=== PATIENT | male | born 1960 | race Caucasian/White ===

== ENCOUNTER 2016-08-08 10:58 | Inpatient (IN) | payer MEDICAID, OTHER ==
[2016-08-08] VITALS (33 sets, daily range): BP systolic 99–140; BP diastolic 69–95; PULSE 82–110; RESP 8–26; TEMP 98.6; Ht 180.3 cm; Wt 62.5 kg
[~2016-08-08] VITALS: Ht 180.3 cm; Wt 62.5 kg
[2016-08-08] MEDS ORDERED: ASPIRIN 325 MG TAB PO STA (11:27)
--- NOTE | 2016-08-08 11:31 | ERA ---
ER Documentation Chief Complaint Date/Time DATE: 08/08/16 TIME: 11:26 Chief Complaint HPI 56-year-old male with no significant previous medical history other than nicotine abuse ambulatory to the ED complaining of acute onset of unprovoked, severe, sharp and pressure-like epigastric pain which radiates up to his mid substernal area. Denies shortness of breath, nausea, vomiting or diaphoresis. No relieving or exacerbating factors. Denies headache or neck pain. No visual changes, focal weakness or numbness. Denies abdominal pain or low back pain. No leg pain or swelling. No URI symptoms or cough. No fevers or chills. ROS All systems reviewed and are negative except as per history of present illness. Medications Home Meds No Active Prescriptions or Reported Meds Allergies Allergies: Coded Allergies: No Known Allergy (Unverified , 08/08/16) PMhx/Soc Reviewed in chart. As per HPI. History of Surgery: Yes Anesthesia Reaction: No Hx Neurological Disorder: No Hx Respiratory Disorders: No Hx Cardiac Disorders: No Hx Psychiatric Problems: No Hx Miscellaneous Medical Probl: No Hx Alcohol Use: Yes (2-3 drinks per day for many years) Hx Tobacco Use: Yes (1 pack per day for over 25 years) FmHx Mother: Cardiac disease and heart surgery. No family history of stroke or cancer Physical Exam Vitals Vital Signs Date Time Temp Pulse Resp B/P Pulse Ox O2 Delivery O2 Flow Rate FiO2 08/08/16 11:58 98.6 114 18 124/76 99 Room Air 08/08/16 11:37 Nasal Cannula 2 08/08/16 11:30 98.6 80 20 111/71 99 Physical Exam Const: Alert, severe distress Head: Atraumatic Eyes: Normal Conjunctiva ENT: Normal External Ears, Nose and Mouth. Neck: Full range of motion. No JVD. Resp: Clear to auscultation bilaterally Cardio: Regular rate and rhythm, no murmurs. No chest wall tenderness Abd: Soft, non tender, non distended. Normal bowel sounds Skin: No petechiae or rashes Back: No midline or flank tenderness Ext: No cyanosis, or edema. No calf swelling or tenderness Neur: Awake and alert. No focal deficit observed Psych: Appears anxious but not depressed. Result Diagram: 08/08/16 1205 08/08/16 1205 Results 24 hrs Laboratory Tests Test 08/08/16 12:05 White Blood Count 19.610^3/ul Red Blood Count 4.5410^6/ul Hemoglobin 14.5g/dl Hematocrit 42.4% Mean Corpuscular Volume 93.4fl Mean Corpuscular Hemoglobin 31.9pg Mean Corpuscular Hemoglobin Concent 34.2g/dl Red Cell Distribution Width 14.6% Platelet Count 52260^3/UL Mean Platelet Volume 10.2fl Neutrophils % 79.8% Lymphocytes % 14.7% Monocytes % 4.2% Eosinophils % 0.4% Basophils % 0.4% Nucleated Red Blood Cells % 0.0/100WBC Neutrophils # 15.710^3/ul Lymphocytes # 2.910^3/ul Monocytes # 0.810^3/ul Eosinophils # 0.110^3/ul Basophils # 0.110^3/ul Nucleated Red Blood Cells # 0.010^3/ul Prothrombin Time 12.2Sec Prothrombin Time Ratio 1.0 INR International Normalized Ratio 0.91 Activated Partial Thromboplast Time 24.1Sec Sodium Level 135mmol/L Potassium Level 4.3mmol/L Chloride Level 104mmol/L Carbon Dioxide Level 24mmol/L Anion Gap 11 Blood Urea Nitrogen 10mg/dl Creatinine 1.03mg/dl Glucose Level 211mg/dl Calcium Level 9.4mg/dl Troponin I 0.300ng/ml Current Medications Medications (Trade) Dose Ordered Sig/Desi Route PRN Reason Start Time Stop Time Status Last Admin Dose Admin Aspirin (Aspirin) 325 mg ONCE STAT PO 08/08/16 11:27 08/08/16 11:28 DC 08/08/16 11:33 Ticagrelor (Brilinta) 180 mg ONCE ONCE PO 08/08/16 12:00 08/08/16 12:01 DC 08/08/16 11:44 Miscellaneous Information (* Miscellaneous Pharmacy Order) DC previous hepa... ONCE ONCE XX 08/08/16 12:00 08/08/16 12:01 DC Heparin Sodium (Porcine) (Heparin (1000 Units/ml)) 4,000 unit ONCE ONCE IV 08/08/16 12:00 08/08/16 12:01 DC 08/08/16 11:39 Heparin Sodium (Porcine) 4000 unit 4,000 unit PER PROTOCOL PRN IV aPTT<47 08/08/16 12:00 Heparin Sodium (Porcine) (Heparin 43131 Units/250 ml) 250 ml @ 0 mls/hr PER PROTOCOL IV 08/08/16 12:00 08/08/16 11:44 Nitroglycerin 1 tab 1 tab Q5M UP TO 3 DOSES PRN SL CHEST PAIN 08/08/16 12:00 08/08/16 11:50 Nitroglycerin/ Dextrose 250 ml @ 6 mls/hr ONCE STAT IV 08/08/16 11:44 08/10/16 05:23 08/08/16 11:56 Heparin Sodium/ Sodium Chloride (Heparin 1000 Units/NS (A-Line)) 1,500 ml @ ud STK-MED ONCE .ROUTE 08/08/16 11:49 08/08/16 11:50 DC Iodixanol (Visipaque Locm) 100 ml STK-MED ONCE .ROUTE 08/08/16 11:49 08/08/16 11:50 DC Lidocaine (Xylocaine 1% (Mdv) 20 ml) 20 ml STK-MED ONCE .ROUTE 08/08/16 11:49 08/08/16 11:50 DC Midazolam HCl (Versed) 2 mg STK-MED ONCE .ROUTE 08/08/16 11:59 08/08/16 12:00 DC Fentanyl (Sublimaze) 100 mcg STK-MED ONCE .ROUTE 08/08/16 11:59 08/08/16 12:00 DC Iohexol (Omnipaque 350mg/ ml) 50 ml STK-MED ONCE .ROUTE 08/08/16 12:33 08/08/16 12:34 DC Iodixanol (Visipaque Locm) 100 ml STK-MED ONCE .ROUTE 08/08/16 12:33 08/08/16 12:34 DC Iodixanol (Visipaque Locm) 100 ml STK-MED ONCE .ROUTE 08/08/16 12:33 08/08/16 12:34 DC Heparin Sodium (Porcine) (Heparin (1000 Units/ml)) 10,000 unit STK-MED ONCE .ROUTE 08/08/16 12:33 08/08/16 12:34 DC Lidocaine/ Epinephrine (Xylocaine 1%/ Epi) 30 ml STK-MED ONCE .ROUTE 08/08/16 12:53 08/08/16 12:54 DC Miscellaneous Information (* Miscellaneous Pharmacy Order) Hold all Metformin ... ONCE XX 08/08/16 13:30 08/10/16 13:29 Aspirin (Halfprin) 81 mg DAILY PO 08/09/16 09:00 Ticagrelor (Brilinta) 90 mg BID PO 08/08/16 21:00 Atorvastatin Calcium 80 mg 80 mg DAILY@21 PO 08/08/16 21:00 Sodium Chloride (NS) 1,000 ml @ 75 mls/hr [id number] IV 08/08/16 13:08 08/08/16 18:07 Potassium Chloride (Potassium Chloride Pwd/Soln) 20 meq PER PROTOCOL PRN PO POTASSIUM REPLACEMENT PROTOCOL 08/08/16 13:30 Potassium Chloride (Potassium Chloride Pwd/Soln) 30 meq PER PROTOCOL PRN PO POTASSIUM REPLACEMENT PROTOCOL 08/08/16 13:30 Potassium Chloride (Potassium Chloride Pwd/Soln) 40 meq PER PROTOCOL PRN PO POTASSIUM REPLACEMENT PROTOCOL 08/08/16 13:30 RHYTHM STRIP INTERPRETATION: Time: 11:35. Sinus rhythm. Ventricular rate 82. No ectopy. Indication: Chest pain/STEMI. EKG: TIME: 11:20. Sinus rhythm. Ventricular rate 68. Normal VA interval. Left axis deviation with right bundle branch block. ST segment elevations in V1 through V5 with reciprocal depressions in 2 3 and aVF. No ectopy. EP Interpretation: Acute STEMI. Abnormal EKG. IMAGING: [ ] Procedures/MDM DOCUMENTS REVIEWED: ED nurse, no prior records MEDICAL DECISION MAKIN-year-old male with no significant previous medical history other than nicotine abuse ambulatory to the ED complaining of acute onset of unprovoked, severe, sharp and pressure-like epigastric pain which radiates up to his mid substernal area. EKG reveals ST segment elevations consistent with an acute anterior septal cartilage infarction. Code STEMI immediately initiated AND case discussed with Dr. Strickland of cardiology who will take the patient emergently to the cardiac director geophysical laboratory. Aspirin, Brilinta given. Intravenous heparin and nitroglycerin initiated. Doubt pulmonary embolism or aortic dissection. At 11:55 patient developed episodes of supraventricular tachycardia but blood pressure remained stable. Pacer/ defibrillator pads are in place. Patient was transported to the Cardiac [facility] at 12:03. Admit to ICU after PCI. Counseled patient and family regarding diagnosis, diagnostic results and plan for PCI and admission. CALLS/CONSULTS: Time 11:26, Code Stemi and Dr. Marco A loredo. Recommends aspirin , heparin, Brilinta and Wire [facility] activation. CALLS/CONSULTS: Time 11:50, Dr Calhoun PATIENT CARE TRANSITIONED: Time: 11:50, Dr. Calhoun. Critical Care Time: 35 minutes Treatments/Evaluations: Close monitoring and treatment of unstable vital signs, cardiorespiratory, and neurologic status, while maintaining tight balance of fluid, respiratory, and cardiac interventions. This time includes discussing the case with the patient and the patient's family. This time does not include all procedures stated elsewhere in this record. This time also includes reviewing old records, labs and radiological studies. This time includes examining and re-examining the patient. Additionally, this time also includes arranging care with admitting and consulting physicians. Departure Diagnosis: Primary Impression: Acute ST elevation myocardial infarction Qualified Code: I21.09 - Acute ST elevation myocardial infarction (STEMI) involving other coronary artery of anterior wall Condition: Critical ALEX DIETRICH MD Aug 08, 2016 11:31
[2016-08-08] MEDS ORDERED: NITROGLYCERIN 50 MG/D5W (PMX) 250 ML IV STA (11:44)
--- NOTE | 2016-08-08 11:44 | RADRPT ---
PROCEDURE: XR Chest. CLINICAL INDICATION: Chest pain. TECHNIQUE: PA and Lateral views of the chest were obtained. COMPARISON: No. FINDINGS: The soft tissues are normal. The bony elements are normal. Electrodes are draped across the chest. There is an accessory azygos fissure. There are defibrilla tor pads over the upper right chest wall and lower left chest wall. The heart, cardiomediastinal si lhouette and hilar structures are normal. The pulmonary vasculature is normal. There is a left-sided aorta. The lungs are clear. The diaphragms are flattened. The costophrenic angles are clear. IMPRESSION: 1. Pulmonary hyperinflation with no evidence of active cardiopulmonary disease. RPTAT:AAJJ Physician Sanna Date Time Electronically viewed and signed by Physician Sanna on 08/08/2016 11:44 STEPHEN/
[2016-08-08] MEDS ORDERED: IODIXANOL LOCM 100 ML BTL ONE ×3 (11:49→12:33)
[2016-08-08] MEDS ORDERED: LIDOCAINE 1% (MDV) 20 ML INJ ONE (11:49)
--- NOTE | 2016-08-08 11:58 | CONS ---
Date/Time of Note Date/Time of Note DATE: 08/08/16 TIME: 11:55 Assessment/Plan Assessment/Plan Chief Complaint/Hosp Course Impression: Acute Anterior STEMI Abnormal EKG Chest pain Smoker Recommendation/plan: proceed emergently with cardiac cath; further recs pending results of angiogram Problems: Consultation Date/Type/Reason Admit Date/Time Date of Consultation: Aug 08, 2016 Type of Consultation: Cardiology Hx of Present Illness The patient is a 56 y/o male with history of current smoking who presents with chest pain; found to have acute anterior STEMI; patient given ASA, Ticagrelor and IV heparin; code AMI activated for emergent cardiac cath. Social History Smoking Status: Current every day smoker Exam/Review of Systems Vital Signs Vitals Vital Signs Date Time Temp Pulse Resp B/P Pulse Ox O2 Delivery O2 Flow Rate FiO2 08/08/16 11:37 Nasal Cannula 2 08/08/16 11:30 98.6 80 20 111/71 99 Exam Constitutional: distress Neck: non-tender, supple Respiratory: clear to auscultation, normal air movement Cardiovascular: nl pulses, regular rate and rhythm Extremities: normal pulses Medications Medications Current Medications Ticagrelor (Brilinta) 180 mg ONCE ONCE PO Last administered on 08/08/16 11:44 ; Admin Dose 180 MG; Start 08/08/16 at 12:00; Stop 08/08/16 at 12:01 Miscellaneous Information (* Miscellaneous Pharmacy Order) DC previous hepa... ONCE ONCE XX ; Start 08/08/16 at 12:00; Stop 08/08/16 at 12:01 Heparin Sodium (Porcine) (Heparin (1000 Units/ml)) 4,000 unit ONCE ONCE IV Last administered on 08/08/16 11:39; Admin Dose 4,000 UNIT; Start 08/08/16 at 12:00; Stop 08/08/16 at 12:01 REY PUGA Aug 08, 2016 11:58
[2016-08-08] MEDS ORDERED: FENTAnyl 50 MCG/ML VIAL ONE (11:59)
[2016-08-08] MEDS ORDERED: MIDAZOLAM 1 MG/ML 2 ML INJ ONE (11:59)
[2016-08-08] MEDS ORDERED: NITROGLYCERIN (SL) 0.4 MG TAB SL PRN (12:00)
[2016-08-08] MEDS ORDERED: HEPARIN 1000 UNITS/ML 10 ML INJ IV ONE (12:00)
[2016-08-08] MEDS ORDERED: HEPARIN 25000 UNITS/250 ML 250 ML IV SCH (12:00)
[2016-08-08] MEDS ORDERED: TICAGRELOR 90 MG TABLET PO ONE (12:00)
[2016-08-08] MEDS ORDERED: HEPARIN 1000 UNITS/ML 10 ML INJ IV PRN (12:00)
[2016-08-08 12:19] LABS: ADD SCAN DIFF NO
[2016-08-08 12:26] LABS: BASOPHIL # 0.1 10^3/ul (0.0-0.1); BASOPHILS % 0.4 % (0.0-2.0); EOSINOPHILS # 0.1 10^3/ul (0.0-0.5); EOSINOPHILS % 0.4 % (0.0-7.0); HEMATOCRIT 42.4 % (42.0-52.0); HEMOGLOBIN 14.5 g/dl (14.0-18.0); LYMPHOCYTES # 2.9 10^3/ul (0.8-2.9); LYMPHOCYTES % 14.7 % (15.0-51.0); MEAN CORPUSCULAR HEMOGLOBIN 31.9 pg (29.0-33.0); MEAN CORPUSCULAR HGB CONC 34.2 g/dl (32.0-37.0); MEAN CORPUSCULAR VOLUME 93.4 fl (82.0-101.0); MEAN PLATELET VOLUME 10.2 fl (7.4-10.4); MONOCYTE # 0.8 10^3/ul (0.3-0.9); MONOCYTES % 4.2 % (0.0-11.0); NEUTROPHIL # 15.7 10^3/ul (1.6-7.5); NEUTROPHILS % 79.8 % (39.0-77.0); PLATELET COUNT 307 10^3/UL (140-415); RED BLOOD COUNT 4.54 10^6/ul (4.70-6.10); RED CELL DISTRIBUTION WIDTH 14.6 % (11.5-14.5); WHITE BLOOD COUNT 19.6 10^3/ul (4.8-10.8)
[2016-08-08 12:33] LABS: INR 0.91; PARTIAL THROMBOPLASTIN TIME 24.1 Sec (25.0-35.0); PROTIME 12.2 Sec (12.2-14.2)
[2016-08-08] MEDS ORDERED: IOHEXOL 350MG/ML 50 ML BTL ONE (12:33)
[2016-08-08] MEDS ORDERED: HEPARIN 1000 UNITS/ML 10 ML INJ ONE (12:33)
[2016-08-08 12:34] LABS: CALCIUM 9.4 mg/dl (8.4-10.2); CREATININE 1.03 mg/dl (0.61-1.24); POTASSIUM 4.3 mmol/L (3.5-5.1)
[2016-08-08 12:52] LABS: TROPONIN-I 0.3 ng/ml (0.00-0.12)
[2016-08-08] MEDS ORDERED: LIDOCAINE 1%/EPI 30 ML INJ ONE (12:53)
[2016-08-08] MEDS ORDERED: SOD CHLORIDE 0.9% 1,000 ML IV SCH (13:08)
--- NOTE | 2016-08-08 13:16 | EN ---
Date/Time of Note Date/Time of Note DATE: 08/08/16 TIME: 13:09 Event Note Cardiology Cardiology Event Note DATE OF PROCEDURE: 08/08/2016 CABLE LACER: Yusfu Puga MD PROCEDURES PERFORMED: 1. Balloon angioplasty and stent placement of the mid LAD with WILD Synergy 3.5 x 16 2. Balloon angioplasty only of the ostial Diagonal 1 (bifurcation lesion) 2. Left heart catheterization. 3. Right femoral arterial angiogram. 4. Closure device (Per-Close) applied to right femoral arteriotomy site. PREINTERVENTION DIAGNOSIS: 1. Acute Anterior ST elevation myocardial infarction. POSTINTERVENTION DIAGNOSES: 1. Acute Anterior ST elevation myocardial infarction. SEDATION: Conscious sedation with Versed 1 mg IV. DESCRIPTION OF PROCEDURE: The patient placed on clinical researcher, pulse oximetry and supplemental oxygen as necessary. The right groin was prepped and draped in a sterile fashion and infiltrated with 1% lidocaine. Via the Seldinger technique, the right femoral artery was accessed. A 6-Croatian sheath was inserted and through this the right coronary catheter and left coronary catheter and pigtail were advanced into the right coronary artery and left coronary artery and the left ventricle. Placement confirmed by fluoroscopy and hemodynamics. CATHETERIZATION FINDINGS: 1. Left main: No significant disease. 2. LAD: Large caliber vessel with mid 90% thrombotic occlusion involving ostium of diagonal 3. Circumflex: Medium caliber vessel with no significant disease. 4. Obtuse marginal: Medium caliber vessel with no significant disease. 5. RCA: Large dominant vessel with no significant disease HEMODYNAMICS: LVEDP 22. No significant aortic valve gradient on pigtail pullback. RATIONALE FOR INTERVENTIONAL PROCEDURE: Decision was made to intervene on the LAD due to the occlusive nature of the lesion angiographically and patient's presentation of chest pain in the setting of anterior STEMI. Drug-eluting stent was placed because of vessel size and no contraindication to dual antiplatelet therapy. MEDICATIONS GIVEN DURING PROCEDURE: IC Nitroglycerin IV Heparin Please note that aspirin and Ticagrelor were given in the emergency department. ANGIOPLASTY EQUIPMENT: 1. Guide: 6-Croatian XB 3.5 2. Wire: JAMIA Sanchez 3. Balloon: Emerge 2.0 x 12 4. Stent: WIDL Synergy 3.5 x 16 DESCRIPTION OF INTERVENTIONAL PROCEDURE: The guide catheter was advanced in the usual manner and the left main was engaged. Laura Angioplasty wire was then used to successfully cross the LAD lesion. A BMW wire was then used to cross the diagonal lesion. Next, the lesion was predilated with the Emerge balloon to nominal pressures x 12 in each vessel. Repeat angiogram at this time revealed JOAO 3 flow. The stent was then placed across the LAD lesion and successfully deployed at 12 atmospheres. Post-stent dilatation was performed with the noncompliant balloon. Final coronary angiogram revealed adequate stent expansion, JOAO 3 flow, and no dissection. TOTAL CONTRAST: 150cc FLUOROSCOPY TIME: 5.8 minutes. COMPLICATIONS: None. FINAL RESULTS: Successful balloon angioplasty and stent placement of the mid LAD with drug-eluting stent Synergy 3.5 x 16. Pre-intervention stenosis 90%, post-intervention stenosis less than 5%. RECOMMENDATIONS: 1. Continue aspirin 81 mg daily indefinitely. 2. Continue Plavix or Ticagrelor for a minimum of 1 year. 3. [place] aggressive medical therapy with aspirin, statin, beta altagracia. YUSUF PUGA Aug 08, 2016 13:16
[2016-08-08] MEDS ORDERED: POTASSIUM CHLORIDE 20 MEQ POWDER FOR ORAL SOLN PO PRN ×3 (13:30)
--- NOTE | 2016-08-08 15:12 | RADRPT ---
Vent Rate: 104 bpm RR Interval: 0 msec MD Interval: 128 msec QRS Duration: 122 msec QT Interval: 390 msec QTC Interval: 512 msec P-R-T [place]: 75 - -89 - 74 degrees Sinus tachycardia Left axis deviation LAHB Bifascicular block Right bundle branch block Anteroseptal infarct , age undetermined possibly Acute with st elevation Abnormal ECG No previous tracing available for comparison Electronically Signed By: Tone Gillespie [id number]
--- NOTE | 2016-08-08 20:04 | HP ---
Date/Time of Note Date/Time of Note DATE: 08/08/16 TIME: 19:38 Assessment/Plan VTE Prophylaxis VTE Prophylaxis Intervention: other (Ticagrelor) Lines/Catheters IV Catheter Type (from Nrsg): Peripheral IV Assessment/Plan Assessment/Plan 1) Acute Anterior ST elevation myocardial infarction. s/p PTCA x 2 and stent placement x 1 - ADMIT to ICU - Main orders already inputed by Dr. Strickland - Add CHD Profile and Magnesium to AM Labs - Downgrade, Rehab, Cardiac Meds and DC home as per Dr. Strickland 2) Tobacco Dependence - Encourage patient to become a non-smoker while hospitalized - Provide educational material and resources upon discharge 3) Heartburn - Pepcid 20 mg PO BID 4) Alcohol Use, Regular (2 to 3 drinks per day for several years), Excessive - Educate patient to cut back to no more than 2 drinks per day at a minimum, fewer daily drinks and fewer days of drinking are in his best interest. Complete abstinence if recommended by Pulmonary Physical Therapist HPI/ROS Admit Date/Time Admit Date/Time 08/08/16 Hx of Present Illness Patient is a 56 year old man who arrived to the ED earlier today complaining of acute onset of unprovoked, severe, sharp and pressure-like epigastric pain which radiates up to his mid substernal area. He denies shortness of breath, nausea, vomiting or diaphoresis. No relieving or exacerbating factors. Denied headache or neck pain. No visual changes, focal weakness or numbness. Denied abdominal pain or low back pain. No leg pain or swelling. No URI symptoms or cough. No fevers or chills. ER COURSE per ER Physician: 56-year-old male with no significant previous medical history other than nicotine abuse ambulatory to the ED complaining of acute onset of unprovoked, severe, sharp and pressure-like epigastric pain which radiates up to his mid substernal area. EKG reveals ST segment elevations consistent with an acute anterior septal cartilage infarction. Code STEMI immediately initiated AND case discussed with Dr. Strickland of cardiology who will take the patient emergently to the cardiac equipment operator/laborer. Aspirin, Brilinta given. Intravenous heparin and nitroglycerin initiated. Doubt pulmonary embolism or aortic dissection. At 11:55 patient developed episodes of supraventricular tachycardia but blood pressure remained stable. Pacer/ defibrillator pads are in place. Patient was transported to the Cardiac Dirt Supervisor at 12:03. Admit to ICU after PCI. Patient had the following procedures preformed by Yusuf Strickland MD: 1. Balloon angioplasty and stent placement of the mid LAD with WILD Synergy 3.5 x 16 2. Balloon angioplasty only of the ostial Diagonal 1 (bifurcation lesion) 2. Left heart catheterization. 3. Right femoral arterial angiogram. 4. Closure device (Per-Close) applied to right femoral arteriotomy site. Patient was recovered in the PACU and then brought to the ICU. Currently, he is lying in bed watching TV. He just had a little pudding. He denies any pain and feels 100% better than when he arrived to the ED earlier today. He mentions he has a little heartburn and that he is also very hungry, but he knows not to eat too much right away. He denies fever, chills, LEBRON, vision change, sore throat , neck stiffness, chest pain, palpitations, SOB, cough, wheeze, abdominal pain, nausea, vomiting, joint or muscle pains, numbness, tingling or shooting pains. ROS See HPI for positive ROS. All other systems NEGATIVE. PMH/Family/Social Past Medical History Medical History: no pertinent history Past Surgical History Past Surgical Hx: no surgical history Family History Significant Family History: heart disease (Mother: Cardiac disease and heart surgery. ), other (No family history of stroke or cancer) Social History Alcohol Use: other (2 to 3 drinks a day for many years) Smoking Status: Current some day smoker (1 pack per day for 25 years) Drug Use: none Exam/Review of Systems Vital Signs Vitals Vital Signs Date Time Temp Pulse Resp B/P Pulse Ox O2 Delivery O2 Flow Rate FiO2 08/08/16 18:30 98.5 104 20 110/90 100 Room Air 08/08/16 11:37 2 Exam Exam General: Slender Iraqi-Speaking male, alert and oriented, in no acute distress Eyes: Sclera White, EOMI HENT: Normocephalic/Atraumatic, External Ears/Nose Normal, Moist Mucus Membranes Neck: Supple, Trachea Midline Cardiovascular: Normal Rate, Regular Rhythm, Normal S1 and S2, No Murmur, No Extra Sounds. Radial pulse +2/4. No pedal Edema. Sandbag on Right Groin. Pulmonary: Clear to Auscultation Bilaterally, Normal Respiratory Effort, No Rales, Rhonchi or Wheezes Gastrointestinal: Normoactive Bowel Sounds, Soft, Non-Tender/Non-Distended, No Hepatosplenomegaly Appreciated, No Pulsatile Masses Urogenital: Deferred Musculoskeletal: Normal Muscle Bulk and Tone Neurological: CN II - XII Grossly Intact, Non-Focal, Speech Normal Integumentary: Normal Moisture and Temperature, Good Turgor, No Jaundice, No Rash Lymphatic: No Cervical Lymphadenopathy Psychiatric: Appropriate Mood and Affect, Good Eye Contact Labs Result Diagram: 08/08/16 1205 08/08/16 1205 Medications Medications Home Meds No Active Prescriptions or Reported Meds Current Medications Aspirin (Halfprin) 81 mg DAILY PO ; Start 08/09/16 at 09:00 Ticagrelor (Brilinta) 90 mg BID PO ; Start 08/08/16 at 21:00 Atorvastatin Calcium (Lipitor) 80 mg DAILY@21 PO ; Start 08/08/16 at 21:00 Procedures Procedures Laboratory Tests Test 08/08/16 12:05 White Blood Count 19.610^3/ul Red Blood Count 4.5410^6/ul Hemoglobin 14.5g/dl Hematocrit 42.4% Mean Corpuscular Volume 93.4fl Mean Corpuscular Hemoglobin 31.9pg Mean Corpuscular Hemoglobin Concent 34.2g/dl Red Cell Distribution Width 14.6% Platelet Count 35159^3/UL Mean Platelet Volume 10.2fl Neutrophils % 79.8% Lymphocytes % 14.7% Monocytes % 4.2% Eosinophils % 0.4% Basophils % 0.4% Nucleated Red Blood Cells % 0.0/100WBC Neutrophils # 15.710^3/ul Lymphocytes # 2.910^3/ul Monocytes # 0.810^3/ul Eosinophils # 0.110^3/ul Basophils # 0.110^3/ul Nucleated Red Blood Cells # 0.010^3/ul Prothrombin Time 12.2Sec Prothrombin Time Ratio 1.0 INR International Normalized Ratio 0.91 Activated Partial Thromboplast Time 24.1Sec Sodium Level 135mmol/L Potassium Level 4.3mmol/L Chloride Level 104mmol/L Carbon Dioxide Level 24mmol/L Anion Gap 11 Blood Urea Nitrogen 10mg/dl Creatinine 1.03mg/dl Glucose Level 211mg/dl Calcium Level 9.4mg/dl Troponin I 0.300ng/ml RHYTHM STRIP INTERPRETATION: Time: 11:35. Sinus rhythm. Ventricular rate 82. No ectopy. Indication: Chest pain/STEMI. (Interpreted by ER Physician.) EKG: TIME: 11:20. Sinus rhythm. Ventricular rate 68. Normal MO interval. Left axis deviation with right bundle branch block. ST segment elevations in V1 through V5 with reciprocal depressions in 2 3 and aVF. No ectopy. EP Interpretation: Acute STEMI. Abnormal EKG. (Interpreted by ER Physician.) PROCEDURE: XR Chest. CLINICAL INDICATION: Chest pain. TECHNIQUE: PA and Lateral views of the chest were obtained. COMPARISON: No. FINDINGS: The soft tissues are normal. The bony elements are normal. Electrodes are draped across the chest. There is an accessory azygos fissure. There are defibrillator pads over the upper right chest wall and lower left chest wall. The heart, cardiomediastinal silhouette and hilar structures are normal. The pulmonary vasculature is normal. There is a left-sided aorta. The lungs are clear. The diaphragms are flattened. The costophrenic angles are clear. IMPRESSION: 1. Pulmonary hyperinflation with no evidence of active cardiopulmonary disease. MEHUL MELENDEZ DO Aug 08, 2016 19:48 Blood Urea Nitrogen 10mg/dl Creatinine 1.03mg/dl Glucose Level 211mg/dl Calcium Level 9.4mg/dl Troponin I 0.300ng/ml PROCEDURE: XR Chest. CLINICAL INDICATION: Chest pain. TECHNIQUE: PA and Lateral views of the chest were obtained. COMPARISON: No. FINDINGS: The soft tissues are normal. The bony elements are normal. Electrodes are draped across the chest. There is an accessory azygos fissure. There are defibrillator pads over the upper right chest wall and lower left chest wall. The heart, cardiomediastinal silhouette and hilar structures are normal. The pulmonary vasculature is normal. There is a left-sided aorta. The lungs are clear. The diaphragms are flattened. The costophrenic angles are clear. IMPRESSION: 1. Pulmonary hyperinflation with no evidence of active cardiopulmonary disease. MEHUL MELENDEZ DO Aug 08, 2016 19:48 given. Intravenous heparin and nitroglycerin initiated. Doubt pulmonary embolism or aortic dissection. At 11:55 patient developed episodes of supraventricular tachycardia but blood pressure remained stable. Pacer/ defibrillator pads are in place. Patient was transported to the Cardiac Dirt Supervisor at 12:03. Admit to ICU after PCI. Counseled patient and family regarding diagnosis, diagnostic results and plan for PCI and admission. CALLS/CONSULTS: Time 11:26, Code Stemi and Dr. Marco A loredo. Recommends aspirin , heparin, Brilinta and Dirt Supervisor activation. CALLS/CONSULTS: Time 11:50, Dr Calhoun PATIENT CARE TRANSITIONED: Time: 11:50, Dr. Calhoun. Critical Care Time: 35 minutes Treatments/Evaluations: Close monitoring and treatment of unstable vital signs, cardiorespiratory, and neurologic status, while maintaining tight balance of fluid, respiratory, and cardiac interventions. This time includes discussing the case with the patient and the patient's family. This time does not include all procedures stated elsewhere in this record. This time also includes reviewing old records, labs and radiological studies. This time includes examining and re-examining the patient. Additionally, this time also includes arranging care with admitting and consulting physicians. Departure Diagnosis: Primary Impression: Acute ST elevation myocardial infarction Qualified Code: I21.09 - Acute ST elevation myocardial infarction (STEMI) involving other coronary artery of anterior wall ROS See HPI for positive ROS. All other systems NEGATIVE. PMH/Family/Social Past Medical History Medical History: no pertinent history Past Surgical History Past Surgical Hx: no surgical history Family History Significant Family History: heart disease (Mother: Cardiac disease and heart surgery. ), other (No family history of stroke or cancer) Social History Alcohol Use: other (2 to 3 drinks a day for many years) Smoking Status: Current some day smoker (1 pack per day for 25 years) Drug Use: none Exam/Review of Systems Vital Signs Vitals Vital Signs Date Time Temp Pulse Resp B/P Pulse Ox O2 Delivery O2 Flow Rate FiO2 08/08/16 18:30 98.5 104 20 110/90 100 Room Air 08/08/16 11:37 2 Exam Exam General: Slender Iraqi-Speaking male, alert and oriented, in no acute distress Eyes: Sclera White, EOMI HENT: Normocephalic/Atraumatic, External Ears/Nose Normal, Moist Mucus Membranes Neck: Supple, Trachea Midline Cardiovascular: Normal Rate, Regular Rhythm, Normal S1 and S2, No Murmur, No Extra Sounds. Radial pulse +2/4. No pedal Edema. Sandbag on Right Groin. Pulmonary: Clear to Auscultation Bilaterally, Normal Respiratory Effort, No Rales, Rhonchi or Wheezes Gastrointestinal: Normoactive Bowel Sounds, Soft, Non-Tender/Non-Distended, No Hepatosplenomegaly Appreciated, No Pulsatile Masses Urogenital: Deferred Musculoskeletal: Normal Muscle Bulk and Tone Neurological: CN II - XII Grossly Intact, Non-Focal, Speech Normal Integumentary: Normal Moisture and Temperature, Good Turgor, No Jaundice, No Rash Lymphatic: No Cervical Lymphadenopathy Psychiatric: Appropriate Mood and Affect, Good Eye Contact Labs Result Diagram: 08/08/16 1205 08/08/16 1205 Medications Medications Home Meds No Active Prescriptions or Reported Meds Current Medications Aspirin (Halfprin) 81 mg DAILY PO ; Start 08/09/16 at 09:00 Ticagrelor (Brilinta) 90 mg BID PO ; Start 08/08/16 at 21:00 Atorvastatin Calcium (Lipitor) 80 mg DAILY@21 PO ; Start 08/08/16 at 21:00 Procedures Procedures Laboratory Tests Test 08/08/16 12:05 White Blood Count 19.610^3/ul Red Blood Count 4.5410^6/ul Hemoglobin 14.5g/dl Hematocrit 42.4% Mean Corpuscular Volume 93.4fl Mean Corpuscular Hemoglobin 31.9pg Mean Corpuscular Hemoglobin Concent 34.2g/dl Red Cell Distribution Width 14.6% Platelet Count 97019^3/UL Mean Platelet Volume 10.2fl Neutrophils % 79.8% Lymphocytes % 14.7% Monocytes % 4.2% Eosinophils % 0.4% Basophils % 0.4% Nucleated Red Blood Cells % 0.0/100WBC Neutrophils # 15.710^3/ul Lymphocytes # 2.910^3/ul Monocytes # 0.810^3/ul Eosinophils # 0.110^3/ul Basophils # 0.110^3/ul Nucleated Red Blood Cells # 0.010^3/ul Prothrombin Time 12.2Sec Prothrombin Time Ratio 1.0 INR International Normalized Ratio 0.91 Activated Partial Thromboplast Time 24.1Sec Sodium Level 135mmol/L Potassium Level 4.3mmol/L Chloride Level 104mmol/L Carbon Dioxide Level 24mmol/L Anion Gap 11 Blood Urea Nitrogen 10mg/dl Creatinine 1.03mg/dl Glucose Level 211mg/dl Calcium Level 9.4mg/dl Troponin I 0.300ng/ml PROCEDURE: XR Chest. CLINICAL INDICATION: Chest pain. TECHNIQUE: PA and Lateral views of the chest were obtained. COMPARISON: No. FINDINGS: The soft tissues are normal. The bony elements are normal. Electrodes are draped across the chest. There is an accessory azygos fissure. There are defibrillator pads over the upper right chest wall and lower left chest wall. The heart, cardiomediastinal silhouette and hilar structures are normal. The pulmonary vasculature is normal. There is a left-sided aorta. The lungs are clear. The diaphragms are flattened. The costophrenic angles are clear. IMPRESSION: 1. Pulmonary hyperinflation with no evidence of active cardiopulmonary disease. MEHUL MELENDEZ DO Aug 08, 2016 19:48 Aspirin (Halfprin) 81 mg DAILY PO ; Start 08/09/16 at 09:00 Ticagrelor (Brilinta) 90 mg BID PO ; Start 08/08/16 at 21:00 Atorvastatin Calcium (Lipitor) 80 mg DAILY@21 PO ; Start 08/08/16 at 21:00 MEHUL MELENDEZ DO Aug 08, 2016 19:48 MEHUL MELENDEZ DO Aug 08, 2016 19:48
[2016-08-08] MEDS: TICAGRELOR 90 MG TABLET PO SCH (20:40)
[2016-08-08] MEDS ORDERED: ATORVASTATIN 80 MG TAB PO SCH (21:00)
[2016-08-08] MEDS: FAMOTIDINE 20 MG TAB PO SCH (23:53)
[2016-08-09] VITALS (13 sets, daily range): BP systolic 91–121; BP diastolic 58–87; PULSE 75–136; RESP 17–21
[2016-08-09] MEDS ORDERED: HYDROmorphONE 1 MG/ML SYG IV STA (03:10)
[2016-08-09 06:30] LABS: ADD SCAN DIFF NO
[2016-08-09 06:35] LABS: BASOPHIL # 0.1 10^3/ul (0.0-0.1); BASOPHILS % 0.4 % (0.0-2.0); EOSINOPHILS # 0.1 10^3/ul (0.0-0.5); EOSINOPHILS % 0.6 % (0.0-7.0); HEMATOCRIT 37.4 % (42.0-52.0); HEMOGLOBIN 12.6 g/dl (14.0-18.0); LYMPHOCYTES # 2.5 10^3/ul (0.8-2.9); LYMPHOCYTES % 21.6 % (15.0-51.0); MEAN CORPUSCULAR HEMOGLOBIN 31.1 pg (29.0-33.0); MEAN CORPUSCULAR HGB CONC 33.7 g/dl (32.0-37.0); MEAN CORPUSCULAR VOLUME 92.3 fl (82.0-101.0); MEAN PLATELET VOLUME 10.3 fl (7.4-10.4); MONOCYTE # 0.7 10^3/ul (0.3-0.9); MONOCYTES % 6.2 % (0.0-11.0); NEUTROPHIL # 8.2 10^3/ul (1.6-7.5); NEUTROPHILS % 70.9 % (39.0-77.0); PLATELET COUNT 240 10^3/UL (140-415); RED BLOOD COUNT 4.05 10^6/ul (4.70-6.10); RED CELL DISTRIBUTION WIDTH 14.8 % (11.5-14.5); WHITE BLOOD COUNT 11.6 10^3/ul (4.8-10.8)
[2016-08-09 06:54] LABS: CREATININE 0.81 mg/dl (0.61-1.24)
[2016-08-09 06:55] LABS: CALCIUM 8.5 mg/dl (8.4-10.2)
[2016-08-09] MEDS: FAMOTIDINE 20 MG TAB PO SCH (08:41)
[2016-08-09] MEDS: TICAGRELOR 90 MG TABLET PO SCH (08:48)
[2016-08-09] MEDS ORDERED: ASPIRIN (EC) 81 MG TAB PO SCH (09:00)
--- NOTE | 2016-08-09 11:28 | RADRPT ---
Echocardiogram Report Patient Name: LILIAM PARHAM Gender: Male Date: 1960 Study Date: 08-Aug-2016 Cow Puncher: DUTCH DEYSI Location: PACU Ref. Physician: REY PUGA Quality: Technically Difficult Study Procedures: Transthoracic echocardiogram with complete 2D, M-Mode, and doppler examination. Indications: Acute Myocardial Infarction. 2D/M Mode Doppler Measurement Value Normal Ranges Measurement Value Normal Ranges LVIDd 2D 3.9 3.5 - 5.6 cm AV Peak Don 0.9 m/sec LVIDs 2D 3.0 2.1 - 4.1 cm AV Peak PG 3.4 mmHg LVPWd 2D 1.0 0.6 - 1.1 cm LVOT Peak Don 0.8 m/sec IVSd 2D 1.1 0.6 - 1.1 cm LVOT Peak PG 2.5 mmHg AoR Diam 2D 2.4 2.0 - 3.7 cm MV E Peak Don 0.9 m/sec EDV 2D 65.0 cm3 MV A Peak Don 0.8 m/sec ESV 2D 28.1 cm3 MV E/A 1.0 MV Decel Time 113 msec MV Decel [place] 8 MV E/A 1.0 Findings Left Ventricle: Normal left ventricular cavity size. Normal left ventricular wall thickness. Moderate left ventricular systolic dysfunction. Ejection fraction is visually estimated at 35 %. Abnormal Diastolic Function. Right Ventricle: Normal right ventricular size. Normal right ventricular systolic function. Left Atrium: The left atrium is normal in size. Right Atrium: The right atrium is normal in size. Mitral Valve: Mild mitral leaflet calcification. Trace mitral regurgitation. Aortic Valve: No significant aortic stenosis or insufficiency. Trace aortic valve regurgitation. Tricuspid Valve: Tricuspid valve not well visualized. There is trace tricuspid regurgitation. Pulmonic Valve: There is trace pulmonic regurgitation. Pericardium: Normal pericardium with no significant pericardial effusion. Aorta: Normal aortic root. IVC: Dilated inferior vena cava with poor inspiratory collapse consistent with elevated right atrial pressures. Conclusions Normal left ventricular cavity size. Normal left ventricular wall thickness. Moderate left ventricular systolic dysfunction. Ejection fraction is visually estimated at 35 %. Abnormal Diastolic Function. Mild mitral leaflet calcification. Trace mitral regurgitation. Tricuspid valve not well visualized. There is trace tricuspid regurgitation. Electronically Signed By: Rey Puga 09-Aug-2016 11:27:39 -0700 Patient Name: LILIMA PARHAM Study Date: 08-Aug-2016 [id number]
[2016-08-09] MEDS ORDERED: LISINOPRIL 5 MG TAB PO ONE (11:30)
[2016-08-09] MEDS ORDERED: CLOPIDOGREL 75 MG TAB PO SCH (13:30)
[2016-08-09] MEDS ORDERED: CLOP75TA28 PO (16:49)
[2016-08-09] MEDS ORDERED: ATOR20TA38 PO (16:49)
[2016-08-09] MEDS ORDERED: ASPI-664 PO (16:49)
[2016-08-09] MEDS ORDERED: CARV3.1260 PO (16:49)
--- NOTE | 2016-08-09 16:50 | PDOCDIS ---
Discharge Instructions CONDITION Patient Condition: Good HOME CARE INSTRUCTIONS: Special Diet: Cardiac ACTIVITY: Activity Restrictions: No Restrictions FOLLOW UP/APPOINTMENTS Appointments F/U WITH YOUR PCP IN 1-[address] REY PUGA OF CARDIOLOGY IN 1-2 WEEKS MARILEE CARPIO Aug 09, 2016 16:50
--- NOTE | 2016-08-10 03:42 | DS ---
DATE OF ADMISSION: 08/08/2016 DATE OF DISCHARGE: 08/09/2016 DISCHARGE DIAGNOSES: 1. Acute anterior ST elevation myocardial infarction, status post percutaneous coronary interventio n with stent placement in the left anterior descending as well as a balloon angioplasty of the ostia l. The patient will be discharged with aspirin, Plavix, statin, and beta altagracia. 2. History of tobacco use. The patient is advised to stop using. 3. Alcohol abuse. The patient is advised to stop drinking. HOSPITAL COURSE: The patient is a 56-year-old male with a history of alcohol consumption, tobacco a buse. The patient presents with severe sharp chest pain. The patient was found to have an acute an terior ST elevation myocardial infarction, and the patient was taken to the scientific laboratory supervisor with Dr. Josemanuel vee where PCI was done and stent was placed in the LAD. Balloon angioplasty was done in the ostial di agonal 1. The patient did have echo which showed ejection fraction of 35%. This could be a stunned myocardium. The patient's LDL was within normal limits at 42. BP was on the lower side but was to lerating statin. The patient was symptom-free on the day of discharge. Vitals, labs, and physical exam were stable. He had no acute complaints. His questions were answered. He was cleared for dis charge by cardiology. CONDITION ON DISCHARGE: Stable. DISPOSITION: To home. MEDICATIONS: The patient was given 1. Aspirin 81 daily. 2. Lipitor 20 mg p.o. at bedtime. 3. Coreg 3.125 mg p.o. b.i.d. 4. Plavix 75 mg daily. The patient has no reported home medications. FOLLOWUP: The patient is to follow up with PCP in 1 to [address] Yusuf Strickland of cardio logy in 1 to 2 weeks. Greater than 30 minutes was spent coordinating discharge of patient. Dictated By: MARILEE CARPIO MD BS/NTS Conf#: [id number] DID#: [id number]
[2016-08-10] MEDS ORDERED: CLOPIDOGREL 75 MG TAB PO SCH (09:00)
== END 2016-08-09 18:00 | disposition home or self-care (01) | DRG 247 ==
LOC: E/R 10:58 → TEL 12:15 → CCL 12:15 → ICU 18:05 → CCL 19:45 → ICU 19:45 → TEL 08-09 08:16
PROVIDERS: ADMIT Family Medicine; ATTEND Family Medicine
PROC: 027034Z Dilation of Coronary Artery, One Artery with Drug-eluting Intraluminal Device, Percutaneous Approach (ICD-10-PCS; principal; 2016-08-08)
PROC: 02703ZZ Dilation of Coronary Artery, One Artery, Percutaneous Approach (ICD-10-PCS; 2016-08-08)
PROC: 4A023N7 Measurement of Cardiac Sampling and Pressure, Left Heart, Percutaneous Approach (ICD-10-PCS; 2016-08-08)
PROC: B211YZZ Fluoroscopy of Multiple Coronary Arteries using Other Contrast (ICD-10-PCS; 2016-08-08)
DX: I21.09 ST elevation (STEMI) myocardial infarction involving other coronary artery of anterior wall (principal); F10.10 Alcohol abuse, uncomplicated; I25.10 Atherosclerotic heart disease of native coronary artery without angina pectoris; F17.210 Nicotine dependence, cigarettes, uncomplicated
CPT/HCPCS: 36415; 71010; 80048; 80061; 82550; 82553; 83036; 83735; 84484; 85025; 85610; 85730; 87081; 92920; 93005; 93306; 93458; 96374; 96375; C1725; C1760; C1769; C1874; C1887; C1894; C9606; J1644; J2250; J3010; J7030; Q9967